=== PATIENT | female | born 1990 | race Caucasian/White ===

== ENCOUNTER 2024-08-02 08:04 | Emergency (ER) | payer OTHER ==
[~2024-08-02] VITALS: Ht 162.6 cm; Wt 59.0 kg
[2024-08-02 08:20] VITALS: O2SAT 100
[2024-08-02 09:28] LABS: CHLORIDE 108 mEq/L (98-107); POTASSIUM 3.8 mEq/L (3.5-5.1); SODIUM 140 mEq/L (136-145)
[2024-08-02 09:29] LABS: CARBON DIOXIDE 24 mEq/L (21-32); HEMATOCRIT 37.9 % (36.0-48.0); HEMOGLOBIN 12.6 g/dL (12.0-16.0); MEAN CORPUSCULAR HEMOGLOBIN 28.5 pg (28.0-32.0); MEAN CORPUSCULAR HGB CONC 33.3 g/dL (31.0-37.0); MEAN CORPUSCULAR VOLUME 85.5 fL (81.0-99.0); PLATELET 296 x1000/uL (130-400); RED BLOOD CELL COUNT 4.44 mill/uL (4.2-5.4); RED CELL DISTRIBUTION WIDTH 17.5 % (11.6-14.6); WHITE BLOOD COUNT 6.1 x1000/uL (4.5-11.0)
[2024-08-02 09:30] LABS: CALCIUM 10.7 mg/dL (8.7-10.4)
[2024-08-02] MEDS ORDERED: ACETAMINOPHEN WITH CODEINE 300/30MG TABLET PO ONE (09:30)
[2024-08-02 09:34] LABS: CREATININE 0.8 mg/dL (0.6-1.0); GLUCOSE 107 mg/dL (70-105); UREA NITROGEN BLOOD 9 mg/dL (9-23)
[2024-08-02 10:51] LABS: TROPONIN I HIGH SENSITIVITY < 4 ng/L (3.0-34)
[2024-08-02] MEDS: ACETAMINOPHEN WITH CODEINE 300/30MG TABLET PO NR (11:36)
[2024-08-02] MEDS ORDERED: IBUP-2030 PO (11:49)
[2024-08-02 12:00] VITALS: BP 120/68; PULSE 99; RESP 16; TEMP 36.94740; O2SAT 100
== END 2024-08-02 12:10 | disposition home or self-care (01) ==
LOC: ER 08:04
DX: R07.89 Other chest pain (principal); F17.200 Nicotine dependence, unspecified, uncomplicated
CPT/HCPCS: 36415; 71045; 80048; 84484; 85027; 85379; 93005; 99285

== ENCOUNTER 2024-08-03 09:02 | Emergency (ER) | payer OTHER ==
[~2024-08-03] VITALS: Ht 160 cm; Wt 55.0 kg
[~2024-08-03 09:02] MED LIST: IBUP-2030 PO
[2024-08-03 09:08] VITALS: O2SAT 100
[2024-08-03 09:26] VITALS: BP 103/70; PULSE 88; RESP 16; TEMP 98.3; O2SAT 99
== END 2024-08-03 13:05 | disposition left against medical advice (07) ==
LOC: ER 09:16
DX: R06.02 Shortness of breath (principal); Z53.21 Procedure and treatment not carried out due to patient leaving prior to being seen by health care provider